=== PATIENT | female | born 1975 | race African-American/Black ===

== ENCOUNTER 2022-04-03 02:03 | Emergency (ER) | payer SELFPAY ==
[2022-04-03 02:04] VITALS: BP 144/82; PULSE 110; RESP 22; TEMP 36.6; O2SAT 98; BMI 18.7
[2022-04-03 02:37] LABS: Absolute Lymphocyte Count 2.26 X10^3/uL (0.83-4.51); Absolute Neutrophil Count 4.1 X10^3/uL (2.0-7.7); Basophil# 0.04 X10^3/uL; Basophil% 0.6 % (0-1); Eosinophil# 0.13 X10^3/uL; Eosinophils% 1.8 % (0-5); Hematocrit 38.1 % (37-47); Hemoglobin 12.5 g/dL (12.0-15.0); Lymphocyte # 2.26 X10^3/ul (0.83-4.51); Lymphocyte % 31.7 % (19-41); Mean Corp Hgb Conc 32.8 g/dL (32-36); Mean Corpuscular Hgb 26.3 pg (27.0-32.0); Mean Platelet Vol. 10.2 fl (6.2-12.0); Monocyte# 0.57 X10^3/uL; NRBC Flagged by Analyzer 0 % (0-5); Neutrophil # 4.13 X10^3/uL (2.7-7.7); Neutrophil % 57.8 % (47-70); Platelet Count 308 K/mm3 (150-450); RBC Distribution Width CV 14.8 % (11.6-14.6); RBC Distribution Width SD 42.5 fl (35.1-43.9); Red Blood Count 4.76 M/mm3 (4.2-5.4); White Blood Count 7.1 K/mm3 (4.4-11.0)
[2022-04-03 02:42] LABS: Internal QC Validated? YES +Cl - CLEAR BKGD; Pregnancy, Urine Negative Negative
[2022-04-03 02:51] LABS: Amphetamine Urine VISTA NEGATIVE (<1000 ng/mL); Barbiturate Urine VISTA NEGATIVE (< 200 ng/mL); Benzodiazepine Urine VISTA NEGATIVE (< 200 ng/mL); Cocaine Urine VISTA NEGATIVE (< 300 ng/mL); Ecstacy Urine VISTA NEGATIVE (< 500 ng/mL); Methadone Urine VISTA NEGATIVE (< 300 ng/mL); PCP Urine VISTA NEGATIVE (< 25 ng/mL); THC Urine VISTA NEGATIVE (< 50 ng/mL); Vista UDS pH Range 5
[2022-04-03 02:52] LABS: Anion Gap 9 (5-15); BUN 4 mg/dL (7-18); BUN/Creat Ratio 6.9 RATIO (10-20); Calcium,Total 8.8 mg/dL (8.5-10.1); Chloride 109 mmol/L (98-107); Creatinine, Serum 0.58 mg/dL (0.55-1.02); EST Glomerular Filtration Rate 118 mL/min (>60); Est Glom Filt Rate - Afr Amer 143 mL/min (>60); Estimated Creatinine Clearance 104.87 ml/min; Glucose 105 mg/dL (74-106); Potassium 2.6 mmol/L (3.5-5.1); Sodium Level 145 mmol/L (136-145)
[2022-04-03] MEDS: Potassium Chloride Oral Tablet 20 MEQ 40 MEQ PO (03:17)
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
--- NOTE | 2022-04-03 04:06 | ED.RN ---
patient was advised if she was able to get a ride home and witnessed being able to take custody of her then she would be able to leave. patient was witnessed leaving the back of the er and seen leabing out the main doors. patient at this time too intoxicated to leave on her own. charge nurse went to locate patient. patient was seen out in the out patient cancer center parking lot. attempted to make contact with patient who started to cuss and yell at staff and refusing to talk to nursing staff. spoke with dr. mcghee who advised make contact with virgil gaspar. nursing staff and security witnessed patient walking down the road. virgil gaspar made aware. at this time virgil gaspar working on locating patient. Dr. Mcghee aware of condition at this time.
--- NOTE | 2022-04-03 04:16 | ED.RN ---
robbie sequeira made contact with patient. patient is headed back to her house. she denies any harm. Dr. Mcghee said along as she has some one to take of her she is fine to leave. Robbie SEQUEIRA aware and is making sure she makes it home safely.
== END 2022-04-03 04:17 | disposition left against medical advice (07) ==
LOC: ED 02:28
PROVIDERS: Emergency Provider Emergency Medicine; Visit Provider Emergency Medicine
DX: S00.81XA Abrasion of other part of head, initial encounter (principal); F10.129 Alcohol abuse with intoxication, unspecified; Y90.7 Blood alcohol level of 200-239 mg/100 ml; T74.11XA Adult physical abuse, confirmed, initial encounter; Y07.03 Male partner, perpetrator of maltreatment and neglect; E87.6 Hypokalemia; F17.200 Nicotine dependence, unspecified, uncomplicated
CPT/HCPCS: 80048; 80307; 81025; 82077; 85025; 87426; 99282

== ENCOUNTER 2022-07-17 23:10 | Emergency (ER) | payer SELFPAY ==
[2022-07-17] VITALS (11 sets, daily range): BP systolic 60–87; BP diastolic 36–59; PULSE 84–125; RESP 14–19; TEMP 36.6; O2SAT 96–100; BMI 26.2
[2022-07-17] MEDS: 0.9% Normal Saline 1,000 ML 999 ML IV ×3 (23:20→23:30)
[2022-07-17] MEDS: Cefazolin 1 GM/50 ML BAG IV (23:27)
--- NOTE | 2022-07-17 23:28 | ED.RN ---
PUPILS FIXED AND DILATED UPON ARRIVAL. UNKNOWN DEMOGRAPHIC INFO, INFO ENTERED RHIANNON BORGES
--- NOTE | 2022-07-17 23:30 | RAD_ITS ---
INDICATION: NG/OG PLAMCENT 2 EXAMINATION/TECHNIQUE: X-RAY - XR Chest 1 View COMPARISON: Chest radiograph on same day at 2329 hours. FINDINGS: LINES/DEVICES: Chronic difficult to appreciate. Endotracheal tube approximately 1.5 cm above the kim. Enteric tube subdiaphragmatic in the stomach. Overlying defibrillator pads. Right humeral intraosseous catheter noted.. LUNGS: No consolidation, edema or effusion. No pneumothorax. MEDIASTINUM AND CARDIOVASCULAR STRUCTURES: Cardiac silhouette not enlarged. BONES AND SOFT TISSUES: Subcutaneous emphysema in the supraclavicular bilateral neck and over the left scapula. Underlying scapular fracture lucency is not excluded.. RAD/Chest 1 View (Portable) IMPRESSION: Enteric tube approximately 1.5 cm above the kim. Enteric tube is within the stomach. Persistent bilateral supraclavicular subcutaneous emphysema extends inferiorly over the left scapular. Underlying scapular fracture lucency is not radiographically excluded. Electronically Signed: Dimitri Faust MD at 0:40 EDT ,
--- NOTE | 2022-07-17 23:30 | RAD_ITS ---
INDICATION: PLACEMENT NG/OG EXAMINATION/TECHNIQUE: X-RAY - XR Chest 1 View COMPARISON: None. FINDINGS: LINES/DEVICES: Endotracheal tube 2.4 cm above the kim. Enteric tube subdiaphragmatic in the stomach. Overlying defibrillator pads. LUNGS: No consolidation, edema or effusion. No pneumothorax. MEDIASTINUM AND CARDIOVASCULAR STRUCTURES: Cardiac silhouette not enlarged. BONES AND SOFT TISSUES: Bilateral supraclavicular subcutaneous emphysema, extending over the left scapula with underlying scapular adrenal excluded. RAD/Chest 1 View (Portable) IMPRESSION: Bilateral supraclavicular subcutaneous soft tissue emphysema. Cannot exclude underlying scapular fracture. CT could further evaluate when clinically able. Support apparatus as above. No radiographic evidence of acute cardiopulmonary disease. Electronically Signed: Dimitri Faust MD at 0:35 EDT ,
[2022-07-18 00:04] VITALS: BP 85/63; PULSE 82; RESP 18; O2SAT 100
[2022-07-18 00:08] LABS: Absolute Lymphocyte Count 4.07 X10^3/uL (0.83-4.51); Absolute Neutrophil Count 0.5 X10^3/uL (2.0-7.7); Basophil# 0.01 X10^3/uL; Basophil% 0.2 % (0-1); Eosinophil# 0.06 X10^3/uL; Eosinophils% 1.3 % (0-5); Hematocrit 27.1 % (37-47); Hemoglobin 8.5 g/dL (12.0-15.0); Lymphocyte # 4.07 X10^3/ul (0.83-4.51); Lymphocyte % 85.5 % (19-41); Mean Corp Hgb Conc 31.4 g/dL (32-36); Mean Corpuscular Hgb 26.2 pg (27.0-32.0); Mean Corpuscular Volume 83.6 fL (81-99); Mean Platelet Vol. 11.4 fl (6.2-12.0); Monocyte% 2.1 % (0-10); NRBC Flagged by Analyzer 0 % (0-5); Neutrophil # 0.49 X10^3/uL (2.7-7.7); Neutrophil % 10.3 % (47-70); POSITIVE DIFFERENTIAL YES; POSITIVE MORPHOLOGY YES; Platelet Count 103 K/mm3 (150-450); RBC Distribution Width CV 14.6 % (11.6-14.6); RBC Distribution Width SD 44.3 fl (35.1-43.9); Red Blood Count 3.24 M/mm3 (4.2-5.4); White Blood Count 4.8 K/mm3 (4.4-11.0)
[2022-07-18 00:11] LABS: Allen Test Positive; Base Excess -19 mmol/L (-2 to +2); Bicarbonate 11.7 mmol/L (22-26); Blood Gas Specimen Type ART; FI02 100; Mode AC; O2 Delivery Device Adult Vent; PEEP 5; PO2 435 mmHG (75-100); RR 14; SITE L Radial; SO2 100 % (95-99); Total Carbon Dioxide 13 mmol/L; Vt 450; pCO2 40.6 mmHg (35-45); pH 7.07 (7.35-7.45)
[2022-07-18 00:11] LABS: Differential Indicated SCAN CRITERIA MET
[2022-07-18 00:15] VITALS: BP 72/56; PULSE 81; RESP 18; O2SAT 100
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
[2022-07-18 00:21] LABS: International Normalized Ratio 1.4; Prothrombin Time (Protime)PT. 16.6 SECONDS (11.7-14.9)
[2022-07-18 00:22] LABS: AST(SGOT) 110 U/L (15-37); Alanine Aminotransfer ALT/SGPT 56 U/L (13-56); Albumin, Serum 2.5 g/dL (3.2-5.0); Alkaline Phosphatase 60 U/L (45-117); Anion Gap 11 (5-15); BUN 7 mg/dL (7-18); BUN/Creat Ratio 7.9 RATIO (10-20); Calcium,Total 8.1 mg/dL (8.5-10.1); Chloride 107 mmol/L (98-107); Creatinine, Serum 0.88 mg/dL (0.55-1.02); EST Glomerular Filtration Rate 72 mL/min (>60); Est Glom Filt Rate - Afr Amer 88 mL/min (>60); Estimated Creatinine Clearance 61.83 ml/min; Globulin 2.5 g/dL (2.2-4.2); Glucose 238 mg/dL (74-106); Partial Thromboplast Time 45.4 Seconds (24.1-36.2); Potassium 3.5 mmol/L (3.5-5.1); Sodium Level 138 mmol/L (136-145)
[2022-07-18 00:25] VITALS: BP 72/56; PULSE 82; RESP 17; O2SAT 100
[2022-07-18 00:30] VITALS: BP 82/64; PULSE 78; RESP 17; O2SAT 100
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
[2022-07-18 00:45] LABS: Smudge Cells 1+
[2022-07-18 01:06] VITALS: BP 87/56; PULSE 76; RESP 16; TEMP 32.3; O2SAT 100
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
[2022-07-20 13:06] LABS: Pathologist Review Reviewed
== END 2022-07-18 01:05 | disposition short-term general hospital (02) ==
PROVIDERS: Emergency Provider Emergency Medicine; Visit Provider Emergency Medicine
DX: S11.93XA Puncture wound without foreign body of unspecified part of neck, initial encounter (principal); I46.8 Cardiac arrest due to other underlying condition; D62 Acute posthemorrhagic anemia; X95.9XXA Assault by unspecified firearm discharge, initial encounter; Y92.009 Unspecified place in unspecified non-institutional (private) residence as the place of occurrence of the external cause
CPT/HCPCS: 36430; 51702; 31500; 36600; 70450; 70498; 71045; 71260; 74177; 80048; 80076; 82274; 82803; 85025; 85610; 85730; 86644; 86850; 86900; 86901; 86920; 92950; 94002; 96361; 96374; 96376; 99285; J7030; J7040; P9016; Q9967; A4216; P9017